=== PATIENT | female | born 1950 | race Caucasian/White ===

== ENCOUNTER 2022-01-11 15:35 | Inpatient (IN) | payer MEDICARE ==
[~2022-01-11] VITALS: Ht 162.6 cm; Wt 106.1 kg
[2022-01-11] MEDS ORDERED: NA P133E RC (16:32)
[2022-01-11] MEDS ORDERED: CLIN-118 PO (16:32)
[2022-01-11] MEDS ORDERED: MAGN400O6 PO (16:32)
[2022-01-11] MEDS ORDERED: IBUP-1953 PO (16:32)
[2022-01-11] MEDS ORDERED: TEMA15CA5 PO (16:32)
[2022-01-11] MEDS ORDERED: HYDR-3972 PO (16:32)
[2022-01-11] MEDS ORDERED: BISA10SU61 RC (16:32)
[2022-01-11] MEDS ORDERED: MAG30ORA PO (16:32)
[2022-01-11] MEDS ORDERED: DOCU-141 PO (16:32)
[2022-01-11] MEDS ORDERED: FAMO-132 PO (16:32)
[2022-01-11 16:46] LABS: HEMATOCRIT 36.5 % (31.2-41.9); MEAN CORPUSCULAR VOLUME 87.7 fL (75.5-95.3); PLATELET COUNT (AUTO) 239 K/uL (179-408)
[2022-01-11 16:49] LABS: CARBON DIOXIDE 30 mmol/L (21-32); CHLORIDE 106 mmol/L (98-107); CREATININE 1.9 mg/dL (0.6-1.3); GLUCOSE 125 mg/dL (74-106); POTASSIUM 3.5 mmol/L (3.5-5.1); UREA NITROGEN, BLOOD 30 mg/dL (7-18)
[2022-01-11 16:54] LABS: ACETAMINOPHEN < 10.0 ug/mL (10-30); ALANINE AMINOTRANSFERASE 22 U/L (14-59); ALKALINE PHOSPHATASE 74 U/L (50-136); ASPARTATE AMINOTRANSFERASE 11 U/L (15-37); BILIRUBIN,DIRECT < 0.1 mg/dL (0.0-0.2); BILIRUBIN,TOTAL 0.2 mg/dL (0.2-1.0); TOTAL PROTEIN, SERUM 7.5 g/dL (6.4-8.2)
[2022-01-11 17:09] LABS: ETHANOL < 3 MG/DL (0-0)
[2022-01-11 17:37] LABS: *BILIRUBIN,URIN NEGATIVE (NEGATIVE); *BLOOD, URINE NEGATIVE (NEGATIVE); *CLARITY,URINE CLEAR (CLEAR); *COLOR,URINE YELLOW (YELLOW); *KETONES,URINE NEGATIVE (NEGATIVE); *UROBILINOGEN,URINE 0.2 E.U./dl (NORMAL); LEUKOCYTE ESTERASE ,URINE NEGATIVE (NEGATIVE); NITRITE, URINE NEGATIVE (NEGATIVE); UGLUCOSE NEGATIVE (NEGATIVE)
[2022-01-11 17:54] LABS: *AMPHETAMINE, URINE NEGATIVE (NEGATIVE); *CANNABINOID, URINE NEGATIVE (NEGATIVE); *COCCAINE, URINE NEGATIVE (NEGATIVE); *OPIATE, URINE NEGATIVE (NEGATIVE); *PHENCYCLIDINE SCREEN,URINE NEGATIVE (NEGATIVE)
--- NOTE | 2022-01-11 18:29 | NUR ---
Tomas is writing a 7740 hold for pt.
--- NOTE | 2022-01-11 20:05 | NUR ---
pt is being noncompliant arguing with the rescue squads in the hallway she keeps trying to leave her room to walk arond the er. I explained to her that it is not safe and she needs to stay in her room. I called security to assist with the pt.
[2022-01-11 20:45] VITALS: BP 126/75
[2022-01-11] MEDS ORDERED: TEMAZEPAM 7.5 MG CAPSULE PO PRN (21:45)
[2022-01-11] MEDS ORDERED: MAGNESIUM HYDROXIDE 30 ML LIQUID UDC PO PRN (21:45)
[2022-01-11] MEDS ORDERED: BLOOD SUGAR DIAGNOSTIC 1 EACH STRIP VI ONE (21:45)
--- NOTE | 2022-01-11 22:00 | NUR ---
AT APPROX 2030, ADMITTED 71 YEARS OLD FEMALE TO [facility] ON A 5150 HOLD FOR DTS. HER HOLD WILL ON 01/14/22 AT 1840. PER HOLD, PT REPORTED SUICIDAL IDEATION WITH A PLAN TO HANG HERSELF. SHE PRESENTS WITH SEVERE DEPRESSION, TEARFUL. SHE REPORTED H/O UNTREATED DEPRESSION. UPON ADMISSION, PATIENT WAS NOTED A/O X 3. SHE STATED THAT SHE WAS LIVING AT HER HOME WHEN SHE WAS TAKEN TO [facility] D/T ABDOMINAL PAIN. AFTER SHE WAS DISCHARGE, SHE WAS ADMITTED TO [facility] ON 01/09/22. THERE SHE STARTED EXPRESSION SI. DURING THE ADMISSION PROCESS, PATIENT NOTED IRRITABLE, DEMANDING, UNCOOPERATIVE, "I DON'T UNDERSTAND WHY I AM HERE. I DON'T WANT TO OR HURT MYSELF. I DIDN'T MEAN TO SAY THAT. THIS PLACE IS HORRIBLE. I WANT TO GO NOW". PATIENT REQUIRED REDIRECTION REALITY CHECKS AND REASSURANCE. SHE WAS ADVISED OF HER HOLD AND GIVEN HER ADVISEMENT WELL HER BOOKLET FOR PATIENT'S RIGHTS WHEN IN A MENTAL HEALTH FACILITY. PATIENT NOTED WITH A COLOSTOMY BAG. SHE ALSO WAS NOTED WITH A BORDER BANDAGE ON HER RIGHT LOWER ABDOMEN, SHE STATED SHE HAS A FISTULA. SHE REFUSED TO LET THIS CEILING INSULATION BLOWER REMOVED THE BANDAGE. SHE REFUSED PICTURES. SHE ALSO REFUSED TO SIGN ANY OF HER ADMISSION PAPER. PATIENT IS UNDER THE CARE OF DR SUMNER AND DR. CAMPOS. DR CAMPOS WAS NOTIFY OF HER ADMISSION. HE STATED HE WILL RECOILED HER MEDICATIONS IN THE MORNING, HE STATED TO CONTINUE MOTRIN 600MG Q6HRS PO PRN FOR PAIN. WILL CONTINUE TO MONITOR Q15 MIN CHECKS.
[2022-01-12] MEDS: IBUPROFEN 600 MG TABLET PO PRN ×2 (00:05→10:17)
[2022-01-12 08:50] VITALS: BP 181/69
--- NOTE | 2022-01-12 16:19 | NUR ---
GPS: RECEIVED PT THIS MORNING, ALERT AND ORIENTED X3-4. REQUESTED MOTRIN FOR FIBROMYALGIA, GIVEN AND TOLERATED WELL. PT COMPLIANT WITH CARE AND MEDS. PT ASSISTED WITH CHANGING OF COLOSTOMY BAG. COLOSTOMY SUPPLIES TAKEN AT HER BELONGINGS. WITH EPISODE OF PARANOIA, TELLING RUG TOUCH UP PAINTER THAT SHE IS MISSING SOME PAPERS FROM HER FOLDER AND SOMEONE MUST HAVE TAKEN IT. RE-ASSURANCE MADE. PT SEEN AMBULATING ON THE HALLWAY, SOMEWHAT NEEDY BUT DENIES ANY SI/HI. NO AGITATION NOTED AT THIS TIME.
[2022-01-12 17:01] VITALS: BP 157/58
[2022-01-12] MEDS ORDERED: BISACODYL 10 MG SUPP.RECT RC PRN (17:15)
[2022-01-12] MEDS: DULOXETINE 30 MG CAPSULE.DR PO SCH (17:22)
[2022-01-12] MEDS ORDERED: hydrALAZINE HCL 25 MG TABLET PO PRN (17:30)
[2022-01-12] MEDS: AMLODIPINE 5 MG TABLET PO SCH (18:34)
[2022-01-12] MEDS: HYDROCODONE/APAP 5-325MG TABLET PO PRN (18:41)
[2022-01-12] MEDS: ACETAMINOPHEN 325 MG TABLET PO PRN (18:41)
[2022-01-12 19:59] VITALS: BP 152/56
[2022-01-12] MEDS: LORAZEPAM 0.5 MG TABLET PO PRN (20:13)
--- NOTE | 2022-01-13 05:10 | NUR ---
GPS: Nursing Notes: Suicidal. Verbally contracted for safety. Has no plan for self harm. Denies SI. Can be intrusive and needy at times, but compliant with medications and treatment plan. Patient is cooperative with cognition intact. May have increased anxiety at times. Responds well to mood stabilizers. Will continue to monitor for safety.
[2022-01-13 07:30] VITALS: BP 130/64
[2022-01-13 07:36] LABS: HEMATOCRIT 34.9 % (31.2-41.9); MEAN CORPUSCULAR HEMOGLOBIN 29.5 uug (24.7-32.8); MEAN CORPUSCULAR VOLUME 86.6 fL (75.5-95.3); PLATELET COUNT (AUTO) 225 K/uL (179-408)
[2022-01-13 08:19] LABS: ALANINE AMINOTRANSFERASE 12 U/L (14-59); ALKALINE PHOSPHATASE 70 U/L (50-136); ASPARTATE AMINOTRANSFERASE 10 U/L (15-37); BILIRUBIN,TOTAL 0.2 mg/dL (0.2-1.0); CARBON DIOXIDE 26 mmol/L (21-32); CHLORIDE 109 mmol/L (98-107); CREATININE 1.9 mg/dL (0.6-1.3); GLUCOSE 123 mg/dL (74-106); MAGNESIUM 1.9 mg/dL (1.8-2.4); PHOSPHOROUS 4.1 mg/dL (2.5-4.9); POTASSIUM 4.2 mmol/L (3.5-5.1); TOTAL PROTEIN, SERUM 6.8 g/dL (6.4-8.2); UREA NITROGEN, BLOOD 33 mg/dL (7-18)
[2022-01-13 08:43] LABS: THYROID STIMULATING HORMONE < 0.007 mIU/mL (0.358-3.740)
[2022-01-13] MEDS: AMLODIPINE 5 MG TABLET PO SCH (09:55)
[2022-01-13] MEDS: DOCUSATE SODIUM 100 MG CAPSULE PO SCH (09:55)
[2022-01-13] MEDS: FAMOTIDINE 20 MG TABLET PO SCH (09:55)
[2022-01-13] MEDS: glipiZIDE 5 MG TABLET PO SCH ×2 (09:57→17:42)
--- NOTE | 2022-01-13 10:32 | NUR ---
GPS: PT ALERT AND ORIENTED X3. DENIES PAIN OR DISCOMFORT AT THIS TIME. DENIES SI/HI. PT COMPLIANT WITH CARE AND MEDS. ATTENDS AND PARTICIPATES WITH GROUP ACTIVITIES AND COOPERATIVE WITH STAFF. WILL CONTINUE TO MONITOR.
[2022-01-13] MEDS: ACETAMINOPHEN 325 MG TABLET PO PRN (11:09)
[2022-01-13] MEDS: FENOFIBRATE NANOCRYSTALLIZED 145 MG TABLET PO SCH (12:41)
[2022-01-13 17:10] VITALS: BP 159/66
[2022-01-13] MEDS: DULOXETINE 30 MG CAPSULE.DR PO SCH (17:42)
[2022-01-13] MEDS: PROTEIN SUPPLEMENT (PROSTAT) 30 ML LIQUID PO SCH (17:42)
[2022-01-13 19:49] VITALS: BP 162/82
[2022-01-14] MEDS: HYDROCODONE/APAP 5-325MG TABLET PO PRN ×2 (03:10→21:53)
--- NOTE | 2022-01-14 04:31 | NUR ---
Patient slept 5.45 hours, then came out into the patel c/o Fibromyalgia pain. Medicated per order. This life insurance underwriter was able to engage in meaningful conversation with the patient and made a verbal contract for safety. The patient denies SI and was able to talk about triggers to her depression. Safety Stratiges are in place . Continuing to monitor for pain.
[2022-01-14 07:30] VITALS: BP 169/58
[2022-01-14] MEDS: PROTEIN SUPPLEMENT (PROSTAT) 30 ML LIQUID PO SCH (08:00)
[2022-01-14] MEDS: DOCUSATE SODIUM 100 MG CAPSULE PO SCH (09:43)
[2022-01-14] MEDS: FAMOTIDINE 20 MG TABLET PO SCH (09:43)
[2022-01-14] MEDS: AMLODIPINE 5 MG TABLET PO SCH (09:45)
[2022-01-14] MEDS: glipiZIDE 5 MG TABLET PO SCH ×2 (09:45→17:17)
[2022-01-14] MEDS: FENOFIBRATE NANOCRYSTALLIZED 145 MG TABLET PO SCH (09:48)
[2022-01-14] MEDS ORDERED: DULOXETINE 30 MG CAPSULE.DR PO SCH (13:00)
[2022-01-14] MEDS: DULOXETINE 60 MG CAPSULE.DR PO SCH (14:23)
[2022-01-14 16:00] VITALS: BP 133/65
--- NOTE | 2022-01-14 16:22 | NUR ---
VANDANA Initial Discharge Note: Pt currently resides at home located at [address] [place] [address] ([phone]. Pt is agreeable to a temporary senior care facility upon discharge if needed. VANDANA will continue to work with pt, family and MD to ensure a safe and proper discharge plan.
[2022-01-14 20:27] VITALS: BP 144/51
--- NOTE | 2022-01-15 04:04 | NUR ---
GPS NOTES: Received patient in her room, having conversation with room mate. She is A&Ox3, she is pleasant and calm. Assisted patient to provide care for her colostomy bag. Colostomy site is free for any s/s of infection. She can able to make needs known. Prn oxycodone given as per her request d/t generalized body pain 12/02, w/ effectivity 06/04. She slept well during shift uninterrupted. Frequent monitoring observed. Kept safe at all times.
[2022-01-15 07:30] VITALS: BP 150/56
[2022-01-15] MEDS: DOCUSATE SODIUM 100 MG CAPSULE PO SCH (08:16)
[2022-01-15] MEDS: glipiZIDE 5 MG TABLET PO SCH ×3 (08:16→17:02)
[2022-01-15] MEDS: PROTEIN SUPPLEMENT (PROSTAT) 30 ML LIQUID PO SCH (08:17)
[2022-01-15] MEDS: AMLODIPINE 5 MG TABLET PO SCH (08:25)
[2022-01-15] MEDS: FENOFIBRATE NANOCRYSTALLIZED 145 MG TABLET PO SCH (08:29)
[2022-01-15] MEDS: FAMOTIDINE 20 MG TABLET PO SCH (08:38)
--- NOTE | 2022-01-15 10:37 | NUR ---
Pt refused kidney ultrasound
[2022-01-15] MEDS: DULOXETINE 60 MG CAPSULE.DR PO SCH ×2 (12:26→13:00)
--- NOTE | 2022-01-15 13:53 | NUR ---
VANDANA Discharge Update: Pt stated to this journalists and other writers during individual therapy that she is agreeable to a detention facility upon discharge as she stated her apartment is not sanitary at this time due to her medical emergency at her home prior to her admission to [facility].
[2022-01-15 16:00] VITALS: BP 138/70
--- NOTE | 2022-01-15 17:43 | NUR ---
Received patient is alert and oriented x4, flat affect feels helpless and helpless ,selected medication .able to change colostomy bag by herself.when nurse asked why she had colostomy bag in placed she stated 'i do not want to talk about that". stay in the TV room with roommate and min. interaction.will continnue close monitoring.
[2022-01-15 20:00] VITALS: BP 144/52
[2022-01-16] MEDS: ACETAMINOPHEN 325 MG TABLET PO PRN ×2 (03:53→14:04)
--- NOTE | 2022-01-16 05:23 | NUR ---
Received patient in bed with the blankets over her head. When approached, the patient was angry and stated " Keep the lights off. I do not want anything except to be left alone." The patient refused snack and PRN medications. Later in the night, this patient came out of her room, all smiles ,and asked for Tylenol, milk and Topher crackers. The patient was not willing to engage in any conversation at the start of the night, but did deny SI later on . She has Labile mood swings, is easily angered without a obvious cause , as well as being hyperverbal with a artificially bright affect . Safety Stratiges are in place. A continuing to asses patients depression and pain level.
[2022-01-16] MEDS: glipiZIDE 5 MG TABLET PO SCH ×3 (07:30→15:51)
[2022-01-16 07:47] VITALS: BP 145/55
[2022-01-16] MEDS: PROTEIN SUPPLEMENT (PROSTAT) 30 ML LIQUID PO SCH ×2 (08:00→08:35)
[2022-01-16] MEDS: FAMOTIDINE 20 MG TABLET PO SCH ×2 (08:34→08:39)
[2022-01-16] MEDS: DOCUSATE SODIUM 100 MG CAPSULE PO SCH ×2 (08:34→08:39)
[2022-01-16] MEDS: AMLODIPINE 5 MG TABLET PO SCH ×2 (08:35→08:39)
[2022-01-16] MEDS: FENOFIBRATE NANOCRYSTALLIZED 145 MG TABLET PO SCH ×2 (08:35→08:39)
[2022-01-16] MEDS: DULOXETINE 30 MG CAPSULE.DR PO SCH (12:22)
[2022-01-16 15:04] VITALS: BP 131/46
[2022-01-16] MEDS: MAG HYDROX/AL HYDROX/SIMETH 30 ML LIQUID UDC PO PRN (15:50)
[2022-01-16] MEDS: LORAZEPAM 0.5 MG TABLET PO PRN (17:14)
--- NOTE | 2022-01-16 17:27 | NUR ---
noted episode of crying, encouraged to express feelings, Ativan administered as ordered, effective
[2022-01-17] MEDS: LORAZEPAM 0.5 MG TABLET PO PRN ×2 (01:53→21:20)
[2022-01-17] MEDS: ACETAMINOPHEN 325 MG TABLET PO PRN ×3 (01:54→17:12)
--- NOTE | 2022-01-17 03:34 | NUR ---
RECEIVED PATIENT IN HER ROOM IN BED. SHE IS NOTED AWAKE A/O X3. SHE APPEARS DEPRESSED. SHE IS EASILY IRRITABLE, DEMANDING. SHE STATED TO THIS AUTO DETAILER. "I AM IN PAIN AND THIS SHEETS ARE SO HARD ON ME. I HAVE FIBROMYALGIA, YOU DON'T UNDERSTAND. ALL YOU DO IS GIVE PILLS AND PILLS THAT I CAN GET USE TO. NO ONE CARE". PATIENT WAS REASSURED AND REDIRECTED. SHE DENIED SI/HI/VA/AH. SHE STATED, "I NEVER ONCE WAS SUICIDAL". PATIENT ALSO REFUSED V/S. MULTIPLE ATTEMPTS YET REUSED. PATIENT IS REASSURED FOR HER SAFETY. SAFETY AND FALL PRECAUTIONS ARE IN PLACE. PO FLUIDS AND SNACKS WERE GIVEN, WILL CONTINUE TO MONITOR.
[2022-01-17] MEDS: glipiZIDE 5 MG TABLET PO SCH ×3 (07:30→15:42)
[2022-01-17] MEDS: DOCUSATE SODIUM 100 MG CAPSULE PO SCH ×2 (08:33→09:00)
[2022-01-17] MEDS: FENOFIBRATE NANOCRYSTALLIZED 145 MG TABLET PO SCH ×2 (08:34→09:00)
[2022-01-17] MEDS: FAMOTIDINE 20 MG TABLET PO SCH (08:34)
[2022-01-17] MEDS: AMLODIPINE 5 MG TABLET PO SCH ×2 (08:34→09:00)
[2022-01-17] MEDS: PROTEIN SUPPLEMENT (PROSTAT) 30 ML LIQUID PO SCH (08:40)
[2022-01-17] MEDS: DULOXETINE 30 MG CAPSULE.DR PO SCH (12:12)
--- NOTE | 2022-01-17 15:43 | NUR ---
patient is alert and oriented x4 , refused all medication only took Cymbalta at 1 pm, patient able to care for her colostomy bag changed the dressing on RUQ.patient spend all after room with selected peers in TV room. patient still feels hopeless and helpless flat affect no interaction with nurses, will continue close monitoring.
[2022-01-17 16:00] VITALS: BP 155/75
[2022-01-17 19:57] VITALS: BP 156/76
--- NOTE | 2022-01-17 20:30 | NUR ---
RECEIVED PATIENT IN HER ROOM SITTING IN HER BED. SHE IS NOTED A/OX3 ABLE TO VERBALIZED HER FEELINGS. PATIENT IS CALM AND PLEASANT UPON APPROACHED. SHE DENIED SI/HI/VH/AH. SHE IS ABLE TO VERBALLY CFS. SMALL AMOUNT OF SEROUS DISCHARGED WAS NOTED COMING FROM PATIENT'S FISTULA ON HER RIGHT SIDE OF HER ABDOMEN. PATIENT DENIED PAIN. FISTULA WAS CLEANED WITH NS AND A NEW DRESSING APPLIED. PT TOLERATED WELL. A WOUND CONSUL WAS ORDERED. HER V/S ARE STABLE, SHE IS IN NO DISTRESS. PO FLUIDS AND SNACKS WERE GIVEN. SAFETY AND FALL PRECAUTIONS ARE IN PLACE. WILL CONTINUE TO MONITOR
[2022-01-18] MEDS: ACETAMINOPHEN 325 MG TABLET PO PRN ×4 (03:18→22:43)
[2022-01-18] MEDS: LORAZEPAM 0.5 MG TABLET PO PRN ×2 (03:18→22:42)
--- NOTE | 2022-01-18 06:39 | NUR ---
patient slept for approx 6 hrs through the night. she refused blood drawn this morning, she told the dipper machine operator, "you are hurting me, you are hurting me, get out get out!". patient was redirected. will try later.
[2022-01-18] MEDS: glipiZIDE 5 MG TABLET PO SCH ×2 (07:30→16:00)
[2022-01-18 07:53] VITALS: BP 114/48
[2022-01-18] MEDS: PROTEIN SUPPLEMENT (PROSTAT) 30 ML LIQUID PO SCH (08:00)
[2022-01-18] MEDS: DOCUSATE SODIUM 100 MG CAPSULE PO SCH (09:00)
[2022-01-18] MEDS: FENOFIBRATE NANOCRYSTALLIZED 145 MG TABLET PO SCH (09:00)
[2022-01-18] MEDS: AMLODIPINE 5 MG TABLET PO SCH (09:00)
[2022-01-18] MEDS: FAMOTIDINE 20 MG TABLET PO SCH (09:00)
--- NOTE | 2022-01-18 13:46 | NUR ---
14 [facility] DONE WITH PROBABLE CAUSE ON GRAVE DISABILITY ONLY. PT ABLE TO ATTEND.
--- NOTE | 2022-01-18 15:57 | NUR ---
Received patient is alert and oriented x4 , refused all medication, patient able to care for her colostomy bag changed the dressing on RUQ.patient spend all after room with selected peers in TV room. patient still feels hopeless and helpless flat affect no interaction with nurses, will continue close monitoring.
[2022-01-18 17:24] VITALS: BP 133/64
[2022-01-18 19:47] VITALS: BP 131/77
[2022-01-18] MEDS: DULOXETINE 30 MG CAPSULE.DR PO SCH (20:23)
--- NOTE | 2022-01-18 20:45 | NUR ---
RECEIVED PATIENT IN HER ROOM SITTING IN HER BED. SHE IS NOTED A/OX3 ABLE TO VERBALIZED HER FEELINGS. PATIENT IS CALM AND PLEASANT UPON APPROACHED. SHE DENIED SI/HI/VH/AH. NEW DRESSING WAS APPLIED TO HER LESION ON HER RIGHT SIDE OF HER ABDOMEN. SMALL AMOUNT OF SEROUS DISCHARGED WAS NOTED. NO S/S OF INFECTION WAS NOTED AT THIS TIME. HER V/S ARE STABLE, SHE IS IN NO DISTRESS. PO FLUIDS AND SNACKS WERE GIVEN. SHE IS REASSURED FOR HER SAFETY. SAFETY AND FALL PRECAUTIONS ARE IN PLACE. WILL CONTINUE TO MONITOR
[2022-01-18] MEDS: MAG HYDROX/AL HYDROX/SIMETH 30 ML LIQUID UDC PO PRN (21:21)
[2022-01-19] MEDS: FENOFIBRATE NANOCRYSTALLIZED 145 MG TABLET PO SCH (09:00)
[2022-01-19] MEDS: DOCUSATE SODIUM 100 MG CAPSULE PO SCH (09:00)
[2022-01-19] MEDS: FAMOTIDINE 20 MG TABLET PO SCH (09:00)
[2022-01-19] MEDS: AMLODIPINE 5 MG TABLET PO SCH (09:00)
--- NOTE | 2022-01-19 09:03 | NUR ---
Firearms Report: Supervisor [employer] completed and submitted a [employer] firearms report for 5150 a danger to self. A copy of report has been placed in patient chart.
[2022-01-19] MEDS: glipiZIDE 5 MG TABLET PO SCH ×2 (09:29→16:30)
[2022-01-19] MEDS: PROTEIN SUPPLEMENT (PROSTAT) 30 ML LIQUID PO SCH (09:34)
[2022-01-19 11:33] LABS: ALANINE AMINOTRANSFERASE 52 U/L (14-59); ALKALINE PHOSPHATASE 81 U/L (50-136); ASPARTATE AMINOTRANSFERASE 36 U/L (15-37); BILIRUBIN,TOTAL 0.2 mg/dL (0.2-1.0); CARBON DIOXIDE 30 mmol/L (21-32); CHLORIDE 104 mmol/L (98-107); GLUCOSE 143 mg/dL (74-106); MAGNESIUM 2.3 mg/dL (1.8-2.4); PHOSPHOROUS 3.2 mg/dL (2.5-4.9); POTASSIUM 4.5 mmol/L (3.5-5.1); TOTAL PROTEIN, SERUM 7.8 g/dL (6.4-8.2); UREA NITROGEN, BLOOD 34 mg/dL (7-18)
[2022-01-19 11:53] LABS: HEMATOCRIT 40.3 % (31.2-41.9); MEAN CORPUSCULAR HEMOGLOBIN 28.4 uug (24.7-32.8); PLATELET COUNT (AUTO) 258 K/uL (179-408)
--- NOTE | 2022-01-19 11:54 | NUR ---
WOUND CARE CONSULT: PT SEEN FOR ABDOMINAL WOUND, PRESENT ON ADMISSION. DR CALEB POMPA CALLED FOR SURGICAL CONSULT. PT HAS COLOSTOMY WHICH IS PATENT AT THIS TIME. DISCUSSED SKIN PROTECTION WITH NURSING STAFF.
[2022-01-19] MEDS: ACETAMINOPHEN 325 MG TABLET PO PRN ×2 (11:57→20:57)
[2022-01-19 15:49] VITALS: BP 112/73
--- NOTE | 2022-01-19 18:17 | NUR ---
GPS: PT SEEN PLEASANT WITH STAFF AND ROOM MATE SHE GETS ALONG WITH. DENIES ANY PAIN OR DISCOMFORT AT THIS TIME. PT COMPLIANT WITH CARE. REFUSING MEDICAL MEDICATIONS. PER PT, "I ONLY TAKE PSYCHE MEDS CAUSE THAT'S WHAT I'M HERE FOR". EXPLAINED THE RISK AND BENEFITS BUT PT STILL REFUSED TO TAKE IT. PT ENJOYS GROUP THERAPY AND PARTICIPATES WELL. DENIES SI/HI.
[2022-01-19 20:20] VITALS: BP 164/49
[2022-01-19] MEDS: DULOXETINE 30 MG CAPSULE.DR PO SCH (20:53)
[2022-01-19] MEDS: LORAZEPAM 0.5 MG TABLET PO PRN (20:57)
--- NOTE | 2022-01-19 22:58 | NUR ---
GPS: Remains less depressed when asked earlier. No SI. Re-assured prn. Interacts well with her roommate. Safety emphasized. Colostomy care done prn. Will continue to monitor.
[2022-01-20] MEDS: glipiZIDE 5 MG TABLET PO SCH ×2 (07:30→16:30)
[2022-01-20] MEDS: DOCUSATE SODIUM 100 MG CAPSULE PO SCH (09:00)
[2022-01-20] MEDS: FENOFIBRATE NANOCRYSTALLIZED 145 MG TABLET PO SCH (09:00)
[2022-01-20] MEDS: FAMOTIDINE 20 MG TABLET PO SCH (09:00)
[2022-01-20] MEDS: AMLODIPINE 5 MG TABLET PO SCH (09:00)
[2022-01-20] MEDS: PROTEIN SUPPLEMENT (PROSTAT) 30 ML LIQUID PO SCH (09:07)
[2022-01-20] MEDS: ACETAMINOPHEN 325 MG TABLET PO PRN ×2 (11:17→17:24)
[2022-01-20 14:00] VITALS: BP 143/72
--- NOTE | 2022-01-20 15:48 | NUR ---
VANDANA Discharge Note: Pt will be discharged to [facility] located at [address] [place] [address] ([phone]) via Ambulance transportation at 4:30PM. VANDANA spoke with admin coordinator, Michela at the facility who states they are ready to accept the patient today. Pt is aware and agreeable with discharge plan. Pt is alert and oriented x4, is unable to plan for self-care at this time. However, pt is willing to accept care at SNF. Pt denies any suicidal or homicidal ideation. Pt will follow-up at the facility with Psychiatrist, Dr. Escobar and Gear Generator Set Up Operator, Dr. Khan. Pt presents with calm mood and congruent affect. PHARMACY: [facility] ([phone]) [id number] [place] [address].
[2022-01-20 16:00] VITALS: BP 148/73
--- NOTE | 2022-01-20 17:41 | NUR ---
GPS: PT ALERT AND ORIENTED X3, WAS DISCHARGE TO THE FACILITY VIA AN AMBULANCE TRANSPORTATION AT 1730 GOING TO [facility]. PT REQUESTED FOR PAIN MEDS AND TOLERATED WELL. DENIES SI/HI. COLOSTOMY BAG REPLACED THIS MORNING. ALL BELONGINGS GIVEN AND SIGNED BY PT AND LEFT WITH 3 EXTRA COLOSTOMY BAGS IN HER BELONGINGS. PT REQUESTED FOR COPIES OF ALL DOCUMENTS FROM THE CHARTS SPECIFICALLY THE ONE FROM [facility] AND [facility] BUT PER [facility] CAN'T GIVE A COPY TO PT AND ADVISED PT THAT SHE MAY REQUEST TO MEDICAL RECORDS. COVID TEST NEGATIVE. ENDORSED REPORT OF [facility].
== END 2022-01-20 17:30 | DRG 885 ==
LOC: ER 15:35 → GPS 20:22
PROVIDERS: ADMIT Psychiatry & Neurology Psychosomatic Medicine; ATTEND Internal Medicine
DX: F32.2 Major depressive disorder, single episode, severe without psychotic features (principal); N17.0 Acute kidney failure with tubular necrosis; N18.9 Chronic kidney disease, unspecified; Z93.3 Colostomy status; Z68.41 Body mass index [BMI] 40.0-44.9, adult; D68.59 Other primary thrombophilia; K63.2 Fistula of intestine; E66.01 Morbid (severe) obesity due to excess calories; F19.11 Other psychoactive substance abuse, in remission; E78.1 Pure hyperglyceridemia; E11.22 Type 2 diabetes mellitus with diabetic chronic kidney disease; Z90.49 Acquired absence of other specified parts of digestive tract; F43.10 Post-traumatic stress disorder, unspecified; Z20.822 Contact with and (suspected) exposure to COVID-19; M79.7 Fibromyalgia; Z74.09 Other reduced mobility; E05.90 Thyrotoxicosis, unspecified without thyrotoxic crisis or storm; E04.1 Nontoxic single thyroid nodule; G89.29 Other chronic pain; K43.9 Ventral hernia without obstruction or gangrene; Z81.1 Family history of alcohol abuse and dependence; I12.9 Hypertensive chronic kidney disease with stage 1 through stage 4 chronic kidney disease, or unspecified chronic kidney disease
CPT/HCPCS: 36415; 71045; 83735; 84100; 84443; 85025; A4663; G0480